=== PATIENT | male | born 1970 | race Caucasian/White ===

== ENCOUNTER 2019-11-20 08:37 | Emergency (ER) | payer OTHER ==
--- NOTE | 2019-11-20 10:11 | RAD REPORT ---
EXAM DESCRIPTION: CT - Head Brain Wo Cont - 11/20/2019 9:50 am CLINICAL HISTORY: Dizziness COMPARISON: None. TECHNIQUE: Computed axial tomography of the head was obtained. IV contrast was not requested. All CT scans are performed using dose optimization technique as appropriate and may include automated exposure control or mA/KV adjustment according to patient size. FINDINGS: An intracranial bleed is not seen . The ventricles are normal in caliber. No extra-axial fluid collection is noted. Fluid within the sinuses/ mastoids is not seen. IMPRESSION: No acute intracranial abnormality is seen. If patient's symptoms persist MRI of the bra in would be recommended.
--- NOTE | 2019-11-20 10:19 | RAD REPORT ---
EXAM DESCRIPTION: Jeimy Single View11/20/2019 9:50 am CLINICAL HISTORY: Chest pain COMPARISON: none FINDINGS: Right lung appears clear of acute infiltrate. Small nodular opacity mid left lung may represent pulmonary nodule or confluence of ribs and vessels in should be monitored on a follow-up chest x-ray Heart is normal size
[2019-11-20 10:27] LABS: Absolute Lymphocytes (CBC) 0.8 K/uL (0.7-4.9); Basophils % 0.5 % (0-1.3); Hematocrit 44.1 % (39.6-49.0); Lymphocytes % 21.9 % (15.3-44.8); RBC Red Blood Cell Count 5.03 M/uL (4.33-5.43)
[2019-11-20 10:30] LABS: Protime INR 1.2
[2019-11-20 10:47] LABS: ALT/SGPT 55 U/L (12-78); AST/SGOT 31 U/L (15-37); Albumin 3.6 g/dL (3.4-5.0); Alkaline Phosphatase 79 U/L (45-117); BUN Blood Urea Nitrogen 16 mg/dL (7-18); Bicarbonate 23 mmol/L (21-32); Bilirubin Direct 0.3 mg/dL (0-0.2); Bilirubin Total 0.9 mg/dL (0.2-1.0); Glucose Level 119 mg/dL (74-106); Magnesium 2.1 mg/dL (1.8-2.4); NT PRO-BNP 15 pg/mL (<125); Potassium 3.5 mmol/L (3.5-5.1); Protein, Total 7.7 g/dL (6.4-8.2); Sodium Level 137 mmol/L (136-145); Troponin (Emerg Dept Use Only) < 0.02 ng/mL (0.0-0.045)
--- NOTE | 2019-11-20 11:37 | EDPHYS ---
Physician Documentation [facility] Name: Bill Mistry Age: 49 yrs Sex: Male : 1970 Arrival Date: 11/20/2019 Time: 08:40 Bed 14 Private MD: ED Physician Osvaldo Pelaez HPI: 11/19 09:33 This 49 yrs old Male presents to ER via Ambulatory with complaints of General jmm Weakness, Dizziness. 09:33 The patient or guardian reports cough. Onset: The symptoms/episode began/occurred jmm gradually, 2 week(s) ago. Modifying factors: The symptoms are alleviated by nothing. the symptoms are aggravated by nothing. Associated signs and symptoms:. This is a 49 year old male with no chronic medical conditions that presents to the ED with complaints of weakness, cough, fatigue beginning approx 2 week ago. Patient was tested for COVID-19 on the 7th with a negative result. Patient states feeling better but still has fatigue, and feels off balance as well. . Historical: - Allergies: 09:00 No Known Allergies; iw - Home Meds: 09:00 None [Active]; iw - PMHx: 09:00 None; iw - PSHx: 09:00 None; iw - Immunization history:: Adult Immunizations not up to date. - Social history:: Smoking status: Patient denies any tobacco usage or history of. ROS: 09:33 Cardiovascular: Negative for chest pain, palpitations, and edema. jmm 09:33 Constitutional: Positive for body aches, chills, fatigue. 09:33 Respiratory: Positive for cough. 09:33 All other systems are negative. Exam: 09:33 Constitutional: This is a well developed, well nourished patient who is awake, alert, jmm and in no acute distress. Head/Face: atraumatic. Eyes: EOMI, no conjunctival erythema appreciated ENT: Moist Mucus Membranes Neck: Trachea midline, Supple Chest/axilla: Normal chest wall appearance and motion. Cardiovascular: Regular rate and rhythm. No edema appreciated Respiratory: Normal respirations, no respiratory distress appreciated Abdomen/GI: Non distended, soft Back: Normal ROM Skin: General appearance color normal MS/ Extremity: Moves all extremities, no obvious deformities appreciated, no edema noted to the lower extremities Neuro: Awake and alert, normal gait Psych: Behavior is normal, Mood is normal, Patient is cooperative and pleasant 10:50 ECG was reviewed by the Attending Physician. [facility] Vital Signs: 08:55 BP 114 / 83; Pulse 88; Resp 16 S; Temp 97.2; Pulse Ox 96% on R/A; Weight 154.22 kg; iw Height 6 ft. 4 in. (193.04 cm); 10:30 BP 118 / 76; Pulse 81; Resp 18; Pulse Ox 98% on R/A; ph 12:01 BP 115 / 76; Pulse 85; Resp 18; Temp 97.5; Pulse Ox 97% on R/A; ph 08:55 Body Mass Index 41.39 (154.22 kg, 193.04 cm) iw MDM: 09:04 Patient medically screened. [facility] 11:35 Data reviewed: vital signs, nurses notes. Counseling: I had a detailed discussion with kenroy the patient and/or guardian regarding: the historical points, exam findings, and any diagnostic results supporting the discharge/admit diagnosis, lab results, radiology results, the need for outpatient follow up, to return to the emergency department if symptoms worsen or persist or if there are any questions or concerns that arise at home. ED course: Patient is alert and non toxic in appearance in the ED. No signs of resp distress. Patient is advised to follow up with pcp and otherwise given strict return precautions. Patient understood and agrees with the plan of care. . 11/19 09:32 Order name: Basic Metabolic Panel; Complete Time: 10:55 [facility] 11/19 09:32 Order name: CBC with Diff; Complete Time: 10:37 [facility] 11/19 09:32 Order name: LFT's; Complete Time: 10:55 [facility] 11/19 09:32 Order name: Magnesium; Complete Time: 10:55 [facility] 11/19 09:32 Order name: NT PRO-BNP; Complete Time: 10:55 [facility] 11/19 09:32 Order name: PT-INR; Complete Time: 10:37 [facility] 11/19 09:32 Order name: Troponin (emerg Dept Use Only); Complete Time: 10:55 [facility] 11/19 09:32 Order name: XRAY Chest (1 view); Complete Time: 10:27 [facility] 11/19 09:32 Order name: EKG; Complete Time: 09:33 [facility] 11/19 09:32 Order name: Cardiac monitoring; Complete Time: 11:04 11/19 09:32 Order name: EKG - Nurse/Tech; Complete Time: 11:04 [facility] 11/19 09:32 Order name: IV Saline Lock; Complete Time: 11:10 11/19 09:32 Order name: Labs collected and sent; Complete Time: 11:10 [facility] 11/19 09:32 Order name: CT Head Brain wo Cont; Complete Time: 10:14 11/19 09:32 Order name: O2 Per Protocol; Complete Time: 09:58 11/19 09:32 Order name: O2 Sat Monitoring; Complete Time: :58 jm EC:50 Rate is 68 beats/min. Rhythm is regular. QRS [place] is Normal. [place] interval is normal. QRS jmm interval is normal. QT interval is normal. No Q waves. T waves are Normal. No ST changes noted. Reviewed by me. Administered Medications: No medications were administered Disposition: 15:47 Co-signature as Attending Physician, Osvaldo Pelaez MD. rn Disposition: 11/20/19 11:36 Discharged to Home. Impression: Viral Syndrome. - Condition is Stable. - Discharge Instructions: Viral Respiratory Infection. - Prescriptions for Zithromax Z- Simon 250 mg Oral Tablet - take 1 tablet by ORAL route as directed for 5 days Day 1 - take two (2) tablets one time. Day 2, 3, 4 , 5 take one (1) tablet once daily.; 6 tablet. Albuterol Sulfate 90 mcg/actuation - inhale 1-2 puff by INHALATION route every 4-6 hours; 1 Inhaler. - Medication Reconciliation Form, Thank You Letter, Antibiotic Education, Prescription Opioid Use form. - Follow up: Private Physician; When: 2 - 3 days; Reason: Recheck today's complaints, Continuance of care, Re-evaluation by your physician. Signatures: Dispatcher [employer] Johnnie Vela PA PA jmm Williams, Irene, RN RN iw Nieto, Roman, MD MD rn Hall, Patricia, RN RN ph Corrections: (The following items were deleted from the chart) 12:02 11:36 11/20/2019 11:36 Discharged to Home. Impression: Viral Syndrome. Condition is ph Stable. Forms are Medication Reconciliation Form, Thank You Letter, Antibiotic Education, Prescription Opioid Use. Follow up: Private Physician; When: 2 - 3 days; Reason: Recheck today's complaints, Continuance of care, Re-evaluation by your physician. kenroy
--- NOTE | 2019-11-20 11:37 | ER ---
Nurse's Notes [facility] Name: Bill Mistry Age: 49 yrs Sex: Male : 1970 Arrival Date: 11/20/2019 Time: 08:40 Bed 14 Private MD: Diagnosis: Viral Syndrome Presentation: 11/19 08:55 Chief complaint: Patient states: on 7th he was tested for COVID in [place], yesterday iw he got a negative result , has had loss of appetite, equilibrium, no energy , also has had body aches and chills, today he feels dehydrated, has diarrhea, reports cough but no SOB. Coronavirus screen: Surgical mask placed on patient. Patient moved to private room, placed in contact and droplet isolation with eye protection until further assessment. Patient reports a cough. Patient denies shortness of breath or difficulty breathing. Patient denies measured and/or subjective temperature greater than 100.4F prior to today's visit. Patient denies travel on a cruise ship or to a country the [facility] currently lists as an affected area. Patient denies contact with known and/or suspected case of COVID-19. Ebola Screen: Patient negative for fever greater than or equal to 101.5 degrees Fahrenheit, and additional compatible Ebola Virus Disease symptoms Patient denies exposure to infectious person. Patient denies travel to an Ebola-affected area in the 21 days before illness onset. No symptoms or risks identified at this time. Initial Sepsis Screen: Does the patient meet any 2 criteria? No. Patient's initial sepsis screen is negative. Does the patient have a suspected source of infection? No. Patient's initial sepsis screen is negative. Risk Assessment: Do you want to hurt yourself or someone else? Patient reports no desire to harm self or others. Onset of symptoms was November 05, 2019. 08:55 Method Of Arrival: Ambulatory iw 08:55 Acuity: JOHN 3 iw Historical: - Allergies: 09:00 No Known Allergies; iw - Home Meds: 09:00 None [Active]; iw - PMHx: 09:00 None; iw - PSHx: 09:00 None; iw - Immunization history:: Adult Immunizations not up to date. - Social history:: Smoking status: Patient denies any tobacco usage or history of. Screenin:26 Abuse screen: Denies threats or abuse. Denies injuries from another. Nutritional ph screening: No deficits noted. Tuberculosis screening: No symptoms or risk factors identified. Fall Risk None identified. Assessment: 10:26 General: Appears in no apparent distress. comfortable, well groomed, Behavior is calm, ph cooperative, appropriate for age, Reports fatigue for Denies fever, chills. Pain: Denies pain. Neuro: Level of Consciousness is awake, alert, obeys commands, Oriented to person, place, time, situation. Cardiovascular: Reports fatigue, lightheadedness, Denies chest pain, nausea, palpitations, shortness of breath, syncope, Capillary refill < 3 seconds in bilateral fingers Patient's skin is warm and dry. Respiratory: Airway is patent Respiratory effort is even, unlabored, Respiratory pattern is regular, symmetrical. Respiratory: Reports cough that is Denies shortness of breath. GI: GI: Abdomen is round non-distended, Reports diarrhea, nausea, Patient currently denies abdominal pain, vomiting. Derm: Skin is intact, is healthy with good turgor, Skin is pink, warm \T\ dry. Musculoskeletal: Circulation, motion, and sensation intact. Range of motion: intact in all extremities. 12:00 Reassessment: Patient appears in no apparent distress at this time. Patient and/or ph family updated on plan of care and expected duration. Pain level reassessed. Patient is alert, oriented x 3, equal unlabored respirations, skin warm/dry/pink. Pt d/c home. Vital Signs: 08:55 BP 114 / 83; Pulse 88; Resp 16 S; Temp 97.2; Pulse Ox 96% on R/A; Weight 154.22 kg; iw Height 6 ft. 4 in. (193.04 cm); 10:30 BP 118 / 76; Pulse 81; Resp 18; Pulse Ox 98% on R/A; ph 12:01 BP 115 / 76; Pulse 85; Resp 18; Temp 97.5; Pulse Ox 97% on R/A; ph 08:55 Body Mass Index 41.39 (154.22 kg, 193.04 cm) ED Course: 08:40 Patient arrived in ED. ag5 08:59 Triage completed. iw 09:00 Arm band placed on. iw 09:01 Johnnie Patterson PA is PHCP. [facility] 09:01 Osvaldo Pelaez MD is Attending Physician. [facility] 09:13 Erica Cordero, RN is Primary Nurse. ph 09:50 XRAY Chest (1 view) In Process Unspecified. EDMS 09:50 CT Head Brain wo Cont In Process Unspecified. EDMS 10:10 Initial lab(s) drawn, by me, sent to lab. Missed attempt(s): 20 gauge in right hand. ph 10:15 Inserted saline lock: 22 gauge in left forearm, using aseptic technique. ph 10:26 Patient has correct armband on for positive identification. Bed in low position. Call ph light in reach. Side rails up X 1. Pulse ox on. NIBP on. Door closed. Visitors limited. Warm blanket given. 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 [facility] 11:04 EKG done, by ED staff, reviewed by Osvaldo Pelaez MD. [facility] 12:01 No provider procedures requiring assistance completed. IV discontinued, intact, ph bleeding controlled, No redness/swelling at site. Pressure dressing applied. Administered Medications: No medications were administered Outcome: 11:36 Discharge ordered by MD. [facility] 12:01 Discharged to home ambulatory. ph 12:01 Condition: good 12:01 Discharge instructions given to patient, Instructed on discharge instructions, follow up and referral plans. medication usage, Demonstrated understanding of instructions, follow-up care, medications. 12:02 Patient left the ED. ph Signatures: Dispatcher [employer] EDMS Johnnie Patterson PA PA jmm Williams, Irene, Erica Hoyt RN, RN RN ph Martinez, Maria 5 Aron Tsai 5 Corrections: (The following items were deleted from the chart) 09:22 08:55 Coronavirus screen: Surgical mask placed on patient. Patient moved to private room, placed in contact and droplet isolation with eye protection until further assessment. Patient reports a cough. Patient denies shortness of breath or difficulty breathing. Patient denies measured and/or subjective temperature greater than 100.4F prior to today's visit. Patient reports travel on a cruise ship or to a country the [facility] currently lists as an affected area. Patient denies contact with known and/or suspected case of COVID-19. 10:28 10:26 GI: ph ph
[2019-11-20 12:19] VITALS: BP 115/76; TEMP 97.5; O2SAT 97
--- NOTE | 2019-11-21 07:26 | EKG ---
Test Date: 2019-11-20 Test Time: 10:39:55 Insurance Risk Analyst: SHANNON MEASUREMENT RESULTS: Intervals: Rate: 68 NM: 166 QRSD: 96 QT: 422 QTc: 448 [employer]: P: 25 NM: 166 QRS: 61 T: 52 INTERPRETIVE STATEMENTS: Normal sinus rhythm Normal ECG No previous ECG available for comparison Electronically Signed On 11-21-19 07:23:31 CDT by Kaushik Erwin
== END 2019-11-20 12:02 | disposition home or self-care (01) ==
LOC: ER 08:37
DX: B34.9 Viral infection, unspecified (principal)
CPT/HCPCS: 36415; 70450; 71045; 80048; 80076; 83735; 83880; 84484; 85025; 85610; 93005; 99284

== ENCOUNTER 2023-02-28 10:20 | Emergency (ER) | payer OTHER ==
--- OUTSIDE RECORDS SUMMARY | 2023-02-28 10:23 | XMS REPORT | Continuity of Care Document ---
:1970 Author Organization [facility] t Address [address] [facility] [address] [place] [id number] Care Team Providers Name Role Phone Doctor Unassigned, [place] Attending Clinician Unavailable Grey MIR, Kevin Attending Clinician Payers Payer Name Policy Type Policy Number Effective Date Expiration Date S ource Problems Condition Condition Condition Status Onset Resolution Last Treating Co mments Source Name Details Category Date Date Treatment Clinician Date Family Family Disease Active Univers history of history of 9-21 it y of prostate prostate 00:00: [place] cancer cancer [address] [place] [address] Hypogonadi Hypogonadi Disease Active 2016-05 U nivers sm in male sm in male 1-28 it y of 00:00: [address] Morbid Morbid Disease Active Univers obesity obesity 6-01 ity of with body [place] mass index mass index 00 Me dical of of Branch 40.0-49.9 40.0-49.9 Allergies, Adverse Reactions, Alerts Allergy Allergy Status Severity Reaction(s) Onset Inactive Treating Comm ents Source Name Type Date Date Clinician Clindamy Propensi Active Other - See 2015-05 Severe U nivers jayla ty to comments 0-05 Indigesti ity o f adverse 00:00: on [place] reaction 00 Symptoms Medica l s Branch CLINDAMY DRUG Active Other-Cmnt 2015-05 Univ ers JAYLA INGREDI 0-05 ity of 00:00: [address] Social History Social Habit Start Date Stop Date Quantity Comments Source History of Cigarette Smoker Universi ty of tobacco use [facility] Tobacco use and 2018-08-10 2018-08-10 Never used Universit y of exposure 00:00:00 00:00:00 [facility] Alcohol intake 2018-08-10 2018-08-10 Current drinker of Un iversity of 00:00:00 00:00:00 alcohol (finding) [facility] Tobacco Comment 2016-10-05 2016-10-05 Smoked, quit at [facility] of 00:00:00 00:00:00 [address] [facility] Alcohol Comment 2015-03-13 2015-03-13 occasionally Univers ity of 00:00:00 00:00:00 [facility] Sex Ass[birth year] At [birth year] Universit y of 00:00:00 00:00:00 [facility] Smoking Status Start Date Stop Date Source Former smoker 2018-08-10 00:00:2018-08-10 00:00:00 Universi ty [facility] Medications Ordered Filled Start Stop Current Ordering Indication Dosage Frequency Signature Comments Components Source Medication Medication Date Date Medication? Clinician (SIG) Name Name LORazepam 1 Yes [id number] 1mg Take 1 Univers mg tablet 7-01 tablet by ity o f 00:00: mouth () Medical times Branch daily as needed for Anxiety or Agitation. LORazepam 1 Yes [id number] 1mg Take 1 Univers mg tablet 7-01 tablet by ity o f 00:00: mouth () Medical times Branch daily as needed for Anxiety or Agitation. LORazepam 1 Yes [id number] 1mg Take 1 Univers mg tablet 7-01 tablet by ity o f 00:00: mouth () Medical times Branch daily as needed for Anxiety or Agitation. LORazepam 1 Yes [id number] 1mg Take 1 Univers mg tablet 7-01 tablet by ity o f 00:00: mouth (two) Medical times Branch daily as needed for Anxiety or Agitation. LORazepam 1 Yes [id number] 1mg Take 1 Univers mg tablet 7-01 tablet by ity o f 00:00: mouth 2 (two) Medical times Branch daily as needed for Anxiety or Agitation. LORazepam 1 Yes [id number] 1mg Take 1 Univers mg tablet 7-01 tablet by ity o f 00:00: mouth 2 (two) Medical times Branch daily as needed for Anxiety or Agitation. LORazepam 1 Yes [id number] 1mg Take 1 Univers mg tablet 4-08 tablet by ity o f 00:00: mouth (two) Medical times Branch daily as needed for Anxiety or Agitation. LORazepam 1 2019- No [id number] 1mg Take 1 Univers mg tablet 08-13 tablet by ity of 00:00: 00:00 mouth 2 [place] 00 :00 (two) Medical [facility] daily as needed for Anxiety or Agitation. Procedures Procedure Date / Time Performed Performing Clinician [facility] e EXTERNAL PROVIDER 2020-12-08 05:01:00 Doctor Unassigned, No Univ [facility] [place] RECORDS Name Medical Branch EXTERNAL PROVIDER 2019-12-13 05:01:00 Doctor Unassigned, No [facility] [place] RECORDS Name Medical Branch EXTERNAL PROVIDER 2019-12-02 05:01:00 Doctor Unassigned, No [facility] [place] RECORDS Name Medical Branch Encounters Start End Encounter Admission Attending Care Care Encounter Source Date/Time Date/Time Type Type Clinicians Facility Department ID 2020-12-08 2020-12-08 Orders Doctor SALVADOR [id number] Univers 00:00:00 00:00:00 Only Unassigned, RODOLFO [id number] ity of [facility] [id number] [place] as [phone] [address] 2019-12-13 2019-12-13 Orders Doctor FRANCO [id number] Univers 00:00:00 00:00:00 Only Unassigned, RODOLFO [id number] ity of [facility] [id number] [place] as [phone] [address] 2019-12-03 2019-12-03 Telephone ABHIJIT Edmonds [id number] Univers 00:00:00 00:00:00 Kevin Johnson [id number] i [id number] [phone] Nm dical [facility] 044 [facility] 2019-12-02 2019-12-02 Orders Doctor FRANCO [id number] Univers 00:00:00 00:00:00 Only Unassigned, RODOLFO [id number] ity of [facility] [id number] [place] [phone] [address] 2019-11-20 2019-11-20 Telephone Grey [place]IFEOMA [id number] Univers 00:00:00 00:00:00 Kevin Johnson [id number] i [id number] [phone] Nm dical nal 044 [facility] 2019-11-06 2019-11-06 [facility] [id number] Univers 00:00:00 00:00:00 [facility] [id number] it y of [place] [id number] [place] Professio [phone] Nm dicsc nal [address] [facility] One 2019-11-05 2019-11-05 [facility] [id number] Univers 00:00:00 00:00:00 Kevin [employer] [id number] it y of [place] [id number] [place] Professio [phone] Nm dic[address] One Results This patient has no known results.
[2023-02-28] MEDS ORDERED: NITROGLYCERIN 0.4 MG/TAB SL ONE (10:44)
[2023-02-28] MEDS ORDERED: ASPIRIN 81 MG CHEWABLE TABLET ONE (10:44)
[2023-02-28 10:58] LABS: Absolute Lymphocytes (CBC) 1.4 K/uL (0.7-4.9); Hematocrit 43.9 % (39.6-49.0); MCV 88.9 fL (80-100); MPV 9.8 fL (7.6-11.3); Platelets 184 thou/uL (152-406); RBC Red Blood Cell Count 4.94 M/uL (4.33-5.43)
[2023-02-28] MEDS ORDERED: ONDANSETRON 4 MG/2 ML VIAL ONE (11:04)
[2023-02-28] MEDS ORDERED: MORPHINE 4 MG/ML SYR ONE (11:04)
[2023-02-28 11:20] LABS: Albumin 3.9 g/dL (3.4-5.0); Bilirubin Direct 0.2 mg/dL (0-0.2); Bilirubin Indirect, Calculated 0.4 mg/dL (0.2-0.8); Bilirubin Total 0.6 mg/dL (0.2-1.0); Potassium 4.2 mEq/L (3.5-5.1); Protein, Total 7.5 g/dL (6.4-8.2); Troponin High Sensitivity 6.4 pg/mL (<58.9)
--- NOTE | 2023-02-28 11:48 | RAD REPORT ---
[facility] 11[facility]10 am CLINICAL HISTORY: Chest pain COMPARISON: 2020 FINDINGS: 9 millimeter nodule mid left lung without obvious change from 2020. Right lung appears clear of acute infiltrate. Heart is normal size IMPRESSION: 9 millimeter nodule without obvious change from 2020 probably benign. Follow-up x-ray in 1 year recommended for re-evaluation
--- NOTE | 2023-02-28 12:18 | RAD REPORT ---
EXAM DESCRIPTION: CT - Chest Angio - 02/28/2023 11:39 am CLINICAL HISTORY: Chest pain COMPARISON: None. TECHNIQUE: Dynamically enhanced axial 3 mm thick images of the chest were obtained during administra tion of 100 mL Isovue 370 IV contrast. Coronal and oblique reconstruction images were generated and r eviewed. Exam utilizes a protocol for optimal evaluation of pulmonary arterial tree. Maximum intensity projections 3D imaging was utilized All CT scans are performed using dose optimization technique as appropriate and may include automated exposure control or mA/KV adjustment according to patient size. FINDINGS: A pulmonary embolus is not seen. A thoracic aortic aneurysm is not noted. Bovine aortic A pleural effusion is not seen. A pericardial effusion is not seen. A lung consolidation is not present. 9 millimeter left lower lobe nodule. This is without obvious change from 2020 x-ray Fatty liver IMPRESSION: Negative for a pulmonary embolism. 9 millimeter left lower lobe nodule without obvious change 2020 x-ray likely benign. Follow-up x-ray in 1 year recommended
--- NOTE | 2023-02-28 13:46 | EDPHYS ---
Physician Documentation [facility] Name: Bill Mistry Age: 52 yrs Sex: Male : 1970 Arrival Date: 02/28/2023 Time: 10:20 Bed 4 Private MD: ED Physician John Paul Chandra HPI: 02/28 10:29 This 52 yrs old Male presents to ER via Ambulatory with complaints of Back Pain. ec2 10:29 Patient arrives today due to concern for worsening upper back pain. Patient reports ec2 that he woke up this morning with significant mid back pain, states that the pain progressed throughout the course of the day and is having some paresthesias to the bilateral upper extremities. Patient reports no weakness on either side. Patient reports that he tried massaging the area without significant improvement in his pain. Patient denies any trauma to the area, denies any chest pain, denies shortness of breath. Patient reports no significant medical problems.. Historical: - Allergies: 10:28 No Known Allergies; iw - PMHx: 10:28 Anxiety; iw - Immunization history:: Adult Immunizations unknown. - Social history:: Smoking status: Patient denies any tobacco usage or history of. ROS: 10:29 Constitutional: as per hpi ec2 Exam: 10:29 Constitutional: GEN: Uncomfortable individual who is clammy and diaphoretic Head: ec2 atraumatic Eyes: EOMI Ears: External ears are normal. CV: regular rate LUNGS: no respiratory distress, no wheezes, no rales, no rhonchi ABD: non-distended SKIN: no evidence of rashes MSK: no evidence of trauma, good C/T/L-spine mobility, no crepitus or obvious ecchymosis or deformities present NEURO: moves all extremities equally, bilateral upper extremities with intact strength and sensation Vital Signs: 10:25 BP 170 / 112 RA; Pulse 83; Resp 19; Pulse Ox 98% on R/A; Weight 163.29 kg; Height 6 ft. iw 4 in. ; Pain 10/10; 10:43 BP 128 / 84; Pulse 84; Resp 17; Pulse Ox 99% on R/A; rs5 10:44 BP 151 / 94; Pulse 79; iw 11:00 BP 117 / 99; Pulse 87; Resp 18; Pulse Ox 98% ; rs5 11:15 BP 116 / 85; Pulse 82; Resp 17; Pulse Ox 99% on R/A; rs5 11:35 BP 121 / 84; Pulse 67; Resp 18; Pulse Ox 98% on R/A; rs5 12:00 BP 122 / 73; Pulse 67; Resp 18; Pulse Ox 99% on R/A; rs5 13:00 BP 126 / 74; Pulse 84; Resp 16; Pulse Ox 98% on R/A; rs5 13:40 BP 120 / 75; Pulse 77; Resp 17; Pulse Ox 98% on R/A; rs5 10:25 Body Mass Index 43.82 (163.29 kg, 193.04 cm) iw 10:25 Pain Scale: Adult iw MDM: 10:23 Patient medically screened. ec2 10:29 ED course: Patient arrives today due to concern for significant upper back pain. ec2 Examination remarkable for uncomfortable dividual who is clammy and uncomfortable appearing. Will obtain cardiac work-up, chest x-ray, CT of the chest to further evaluate the patient's complaint. Currently considering process such as ACS, dissection, MSK pain, low suspicion for spinal cord pathology given good strength in the upper extremities and no focality on examination. Accordingly I do not feel he requires advanced imaging such as MRI of the spine at this time. . 11:44 ED course: Metabolic profile is reassuring, CBC is reassuring, troponin is within ec2 normal ranges. . 13:23 ED course: X-ray with no acute intrathoracic process. CT angio of the chest with no ec2 evidence of PE or dissection. Stable left lower lobe nodule noted. I updated the patient regarding that. On reassessment patient reports near complete resolution of the symptoms. . 13:45 ED course: I used shared decision made with the patient, offered inpatient mission for ec2 further cardiac evaluation, states he will follow-up with his primary care doctor. I will discharge home with prescription for Robaxin as well as Atarax for as needed anxiety. Return precautions given.. 13:47 Data reviewed: vital signs. ec2 02/28 10:24 Order name: Basic Metabolic Panel; Complete Time: 11:44 ec2 02/28 10:24 Order name: CBC with Diff; Complete Time: 11:44 ec2 02/28 10:24 Order name: LFT's; Complete Time: 11:44 ec2 02/28 10:24 Order name: Troponin HS; Complete Time: 11:44 ec2 02/28 10:24 Order name: XRAY Chest (1 view); Complete Time: 13:22 ec2 02/28 10:24 Order name: CT Chest Angio; Complete Time: 13:22 ec2 02/28 10:24 Order name: EKG; Complete Time: 10:25 ec2 02/28 10:24 Order name: Cardiac monitoring; Complete Time: 10:34 ec2 02/28 10:24 Order name: EKG - Nurse/Tech; Complete Time: 10:34 ec2 02/28 10:24 Order name: IV Saline Lock; Complete Time: 10:34 ec2 02/28 10:24 Order name: Labs collected and sent; Complete Time: 10:34 ec2 02/28 10:24 Order name: O2 Per Protocol; Complete Time: 10:34 ec2 02/28 10:24 Order name: O2 Sat Monitoring; Complete Time: 10:34 ec2 Administered Medications: 10:27 Drug: Aspirin PO Chewable Tablet 324 mg PO once; 81 mg tablets x 4 Route: PO; rs5 11:00 Follow up: Response: No adverse reaction rs5 10:30 Drug: Nitroglycerin Sublingual 0.4 mg Sublingual once; every five minute if needed x3 rs5 Route: Sublingual; 10:36 Follow up: Response: No adverse reaction; Pain is unchanged, physician notified rs5 10:43 Drug: Nitroglycerin Sublingual 0.4 mg Sublingual once; every five minute if needed x3 rs5 Route: Sublingual; 10:49 Follow up: Response: No adverse reaction; Pain is unchanged, physician notified rs5 10:58 Drug: morphine IVP or IV 4 mg IVP once over 4 mins Route: IVP; Infused Over: 4 mins; rs5 Site: left antecubital; 11:14 Follow up: Response: No adverse reaction; Pain is unchanged, physician notified rs5 11:20 Drug: Ondansetron IVP 4 mg IVP once; over 2 minutes Route: IVP; Site: left antecubital; rs5 11:40 Follow up: Response: No adverse reaction rs5 11:20 Drug: morphine IVP or IV 8 mg IVP once over 4 mins Route: IVP; Infused Over: 4 mins; rs5 Site: left antecubital; 11:35 Follow up: Response: No adverse reaction; Pain is decreased rs5 Disposition Summary: 02/28/23 13:46 Discharge Ordered Notes: Location: Home ec2 Condition: Stable ec2 Diagnosis - Upper Back Pain ec2 Discharge Instructions: - Discharge Summary Sheet ec2 - Acute Back Pain, Adult ec2 Forms: - Medication Reconciliation Form ec2 - Thank You Letter ec2 - Antibiotic Education ec2 - Prescription Opioid Use ec2 - Patient Portal Instructions ec2 - Leadership Thank You Letter ec2 Prescriptions: - Hydroxyzine HCl 50 mg Oral Tablet - take 1 tablet ORAL route every 8 hours As needed; 20 tablet; Refills: 0, ec2 Product Selection Permitted - methocarbamol 500 mg Oral tablet - take 2 tablets ORAL route 4 times per day; 30 tablet; Refills: 0, Product ec2 Selection Permitted Signatures: Dispatcher [employer] Katherine Velazquez RN RN Maximilian Owens RN RN rs5 John Paul Chandra MD MD ec2
--- NOTE | 2023-02-28 13:46 | ER ---
Nurse's Notes [facility] Name: Bill Mistry Age: 52 yrs Sex: Male : 1970 Arrival Date: 02/28/2023 Time: 10:20 Bed 4 Private MD: Diagnosis: Upper Back Pain Presentation: 02/28 10:24 Chief complaint: Patient states: pain between shoulder blades started this morning iw 02/14, got a massage and now his arms feel heavy and numb. Coronavirus screen: At this time, the client does not indicate any symptoms associated with coronavirus-19. Ebola Screen: Patient negative for fever greater than or equal to 101.5 degrees Fahrenheit, and additional compatible Ebola Virus Disease symptoms Patient denies exposure to infectious person. Patient denies travel to an Ebola-affected area in the 21 days before illness onset. No symptoms or risks identified at this time. Initial Sepsis Screen: Does the patient meet any 2 criteria? No. Patient's initial sepsis screen is negative. Does the patient have a suspected source of infection? No. Patient's initial sepsis screen is negative. Risk Assessment: Do you want to hurt yourself or someone else? Patient reports no desire to harm self or others. Onset of symptoms was February 28, 2023. 10:24 Method Of Arrival: Ambulatory iw 10:24 Acuity: JOHN 2 iw Historical: - Allergies: 10:28 No Known Allergies; iw - PMHx: 10:28 Anxiety; iw - Immunization history:: Adult Immunizations unknown. - Social history:: Smoking status: Patient denies any tobacco usage or history of. Screenin:26 Abuse screen: Denies threats or abuse. rs5 10:26 [facility] ED Fall Risk Assessment (Adult) History of falling in the last 3 months, rs5 including since admission No falls in past 3 months (0 pts) Confusion or Disorientation No (0 pts) Intoxicated or Sedated No (0 pts) Impaired Gait No (0 pts) Mobility Assist Device Used No (0 pt) Altered Elimination No (0 pt) Score/Fall Risk Level 0 - 2 = Low Risk Oriented to surroundings, Maintained a safe environment. Nutritional screening: No deficits noted. Tuberculosis screening: No symptoms or risk factors identified. Assessment: 10:26 General: Appears distressed, uncomfortable, Behavior is cooperative, anxious. rs5 10:26 Pain: Complains of pain in upper back Pain does not radiate. Pain currently is 8 out of rs5 10 on a pain scale. Quality of pain is described as aching, pressure, Pain began 2 hours ago. Is continuous. Neuro: Level of Consciousness is awake, alert, obeys commands, Oriented to person, place, time, situation. Cardiovascular: Cardiovascular: Heart tones S1 S2 present Rhythm is regular. Respiratory: Respiratory: Airway is patent Respiratory effort is even, unlabored, Respiratory pattern is regular, symmetrical. GI: Abdomen is round obese, Bowel sounds present X 4 quads. Abd is soft and non tender X 4 quads. : No signs and/or symptoms were reported regarding the genitourinary system. : No signs and/or symptoms were reported regarding the genitourinary system. :. EENT: No signs and/or symptoms were reported regarding the EENT system. Derm: Skin is intact, Skin is pink, warm \T\ dry. Musculoskeletal: Range of motion: limited in right and left arms pt complains of weakness and numbness in left and right arms. 10:49 Reassessment: Two doses of sublingual nitroglycerin administered QX5 min, upper back rs5 pain unchanged, provider notified. 11:14 Pain: Complains of pain in back Pain does not radiate. Pain currently is 8 out of 10 on rs5 a pain scale. Quality of pain is described as aching, Is continuous. 11:35 Pain: Complains of pain in back Pain does not radiate. Pain currently is 4 out of 10 on rs5 a pain scale. Quality of pain is described as aching, Is continuous. 11:35 Cardiovascular: Heart tones S1 S2 present Rhythm is regular. Respiratory: Airway is rs5 patent Respiratory effort is even, unlabored, Respiratory pattern is regular, symmetrical. 11:35 Reassessment: Patient states feeling better. Patient states symptoms have improved. rs5 11:35 Musculoskeletal: Reports numbness in left and right arms, provider notified. rs5 12:36 Reassessment: Patient denies pain at this time. Patient states feeling better. Patient rs5 states symptoms have improved. 12:36 Cardiovascular: Rhythm is regular. Respiratory: Respiratory effort is even, unlabored, rs5 Respiratory pattern is regular, symmetrical. 13:20 Reassessment: No changes from previously documented assessment. rs5 Vital Signs: 10:25 BP 170 / 112 RA; Pulse 83; Resp 19; Pulse Ox 98% on R/A; Weight 163.29 kg; Height 6 ft. iw 4 in. ; Pain 10/10; 10:43 BP 128 / 84; Pulse 84; Resp 17; Pulse Ox 99% on R/A; rs5 10:44 BP 151 / 94; Pulse 79; iw 11:00 BP 117 / 99; Pulse 87; Resp 18; Pulse Ox 98% ; rs5 11:15 BP 116 / 85; Pulse 82; Resp 17; Pulse Ox 99% on R/A; rs5 11:35 BP 121 / 84; Pulse 67; Resp 18; Pulse Ox 98% on R/A; rs5 12:00 BP 122 / 73; Pulse 67; Resp 18; Pulse Ox 99% on R/A; rs5 13:00 BP 126 / 74; Pulse 84; Resp 16; Pulse Ox 98% on R/A; rs5 13:40 BP 120 / 75; Pulse 77; Resp 17; Pulse Ox 98% on R/A; rs5 10:25 Body Mass Index 43.82 (163.29 kg, 193.04 cm) iw 10:25 Pain Scale: Adult iw ED Course: 10:23 Patient arrived in ED. bd 10:23 John Paul Chandra MD is Attending Physician. ec2 10:25 Triage completed. iw 10:25 Inserted saline lock: 20 gauge in left antecubital area, using aseptic technique. Blood rs5 collected. 10:26 Maximilian Owens, RN is Primary Nurse. rs5 10:26 Patient has correct armband on for positive identification. Placed in gown. Bed in low rs5 position. Call light in reach. Side rails up X2. Adult w/ patient. 11:11 XRAY Chest (1 view) In Process Unspecified. EDMS 11:21 pt firearm given to security. bd 11:40 CT Chest Angio In Process Unspecified. EDMS 13:50 No provider procedures requiring assistance completed. rs5 13:50 IV discontinued, intact, bleeding controlled, No redness/swelling at site. Pressure rs5 dressing applied. Administered Medications: 10:27 Drug: Aspirin PO Chewable Tablet 324 mg PO once; 81 mg tablets x 4 Route: PO; rs5 11:00 Follow up: Response: No adverse reaction rs5 10:30 Drug: Nitroglycerin Sublingual 0.4 mg Sublingual once; every five minute if needed x3 rs5 Route: Sublingual; 10:36 Follow up: Response: No adverse reaction; Pain is unchanged, physician notified rs5 10:43 Drug: Nitroglycerin Sublingual 0.4 mg Sublingual once; every five minute if needed x3 rs5 Route: Sublingual; 10:49 Follow up: Response: No adverse reaction; Pain is unchanged, physician notified rs5 10:58 Drug: morphine IVP or IV 4 mg IVP once over 4 mins Route: IVP; Infused Over: 4 mins; rs5 Site: left antecubital; 11:14 Follow up: Response: No adverse reaction; Pain is unchanged, physician notified rs5 11:20 Drug: Ondansetron IVP 4 mg IVP once; over 2 minutes Route: IVP; Site: left antecubital; rs5 11:40 Follow up: Response: No adverse reaction rs5 11:20 Drug: morphine IVP or IV 8 mg IVP once over 4 mins Route: IVP; Infused Over: 4 mins; rs5 Site: left antecubital; 11:35 Follow up: Response: No adverse reaction; Pain is decreased rs5 Medication: 13:50 VIS not applicable for this client. rs5 Outcome: 13:46 Discharge ordered by . ec2 13:50 Discharged to home ambulatory, with family, rs5 13:50 Condition: stable 13:50 Discharge instructions given to patient, family, Instructed on discharge instructions, follow up and referral plans. medication usage, Demonstrated understanding of instructions, follow-up care, medications, Prescriptions given X 2, 14:00 Patient left the ED. rs5 Signatures: Dispatcher [employer] EDMS Isidra Fong Irene, RN RN iw Maximilian Owens RN RN rs5 John Paul Chandra MD MD ec2 Corrections: (The following items were deleted from the chart) 10:26 10:25 BP 170 / 112; Pulse 83bpm; Resp 19bpm; Pulse Ox 98% RA; Pain 10/10, Adult; iw iw 10:28 10:25 BP 170 / 112 R Arm; Pulse 83bpm; Resp 19bpm; Pulse Ox 98% RA; Pain 10/10, Adult; iw iw 11:57 11:20 morphine IVP or IV 4 mg IVP in left antecubital over 4 mins rs5 rs5 12:05 10:26 Pain: Complains of pain in posterior chest Pain does not radiate. Pain currently rs5 is 8 out of 10 on a pain scale. Quality of pain is described as aching, pressure, Pain began 2 hours ago. Is continuous, rs5
--- NOTE | 2023-03-01 11:58 | EKG ---
Test Date: 2023-02-28 Test Time: 10:22:33 Craniologist: DB MEASUREMENT RESULTS: Intervals: Rate: 73 MD: 162 QRSD: 92 QT: 394 QTc: 434 [place]: P: 26 MD: 162 QRS: 51 T: 44 INTERPRETIVE STATEMENTS: Normal sinus rhythm Normal ECG Compared to ECG 11/20/2019 10:39:55 No significant changes Electronically Signed On 03-01-23 11:56:01 CDT by Chad Holley
== END 2023-02-28 14:00 | disposition home or self-care (01) ==
LOC: ER 10:20
DX: M54.9 Dorsalgia, unspecified (principal)
CPT/HCPCS: 93005; 85025; 80048; 36415; 80076; 84484; 71275; 71045; Q9967; J2405